=== PATIENT | male | born 1990 | race Two or more races ===

== ENCOUNTER 2022-12-01 08:38 | Emergency (ER) | payer BC, SELFPAY | END 2022-12-01 10:59 | disposition home or self-care (01) | LOC: ERS 08:38 | DX: S39.012A Strain of muscle, fascia and tendon of lower back, initial encounter (principal); F17.210 Nicotine dependence, cigarettes, uncomplicated; X50.0XXA Overexertion from strenuous movement or load, initial encounter | CPT/HCPCS: 72100 ==